=== PATIENT | female | born 1985 | race Caucasian/White ===

== ENCOUNTER 2022-05-07 15:41 | Inpatient (IN) | payer SELFPAY ==
[2022-05-07] MEDS ORDERED: Ketorolac Tromethamine 30 MG/ML VIAL ONE (17:48)
[2022-05-07 17:56] LABS: Hemoglobin 13.8 g/dL (12.0-15.5); MDiff Complete? YES; Mean Corpuscular HGB CONC 35.1 g/dL (32.0-36.0); Mean Corpuscular Hemoglobin 32.9 pg (27.0-33.0); Mean Corpuscular Volume 93.6 fl (81.6-98.3); Mean Platelet Volume 11.8 fl (7.4-10.4); Platelet Count 194 10x3/uL (150-450); RBC Distribution Width 12.6 % (11.5-14.5); White Blood Cell (WBC) Count 16.4 10x3/uL (3.5-10.5)
[2022-05-07 18:06] LABS: ALT (SGPT) 12 U/L (8-55); AST (SGOT) 13 U/L (5-34); Albumin 4.1 g/dL (3.5-5.0); Alkaline Phosphatase 99 U/L (40-110); Anion Gap 13 mmol/L (10-20); BUN (Urea Nitrogen) 17 mg/dL (7.0-18.7); Bilirubin, Total 0.5 mg/dL (0.2-1.2); Calc. Creatinine Clearance 0 mL/min (70-130); Calcium 9.2 mg/dL (7.8-10.44); Carbon Dioxide 21 mmol/L (22-29); Chloride 107 mmol/L (98-107); Estimated GFR 78; Globulin 3.5 g/dL (2.4-3.5); Glucose 106 mg/dL (70-105); Potassium 3.7 mmol/L (3.5-5.1); Protein, Total 7.6 g/dL (6.0-8.3); Sodium 137 mmol/L (136-145)
[2022-05-07 18:45] LABS: Eosinophils 2 % (0-10); Lymphocytes 11 % (21-51); Monocytes 12 % (0-10); Neutrophil 74 % (42-75); Platelet Morphology Comment Appears Adequate; Reactive Lymphocytes 1 % (0-10)
[2022-05-07] MEDS ORDERED: Acetaminophen 325 MG TAB PO PRN (18:48)
[2022-05-07] MEDS ORDERED: Cefepime 1 GM in Sodium Chloride 0.9% 100 ML IVPB SCH (21:00)
[2022-05-08] MEDS ORDERED: metroNIDAZOLE 500 MG/100 ML BAG ONE ×3 (00:28→13:56)
[2022-05-08] MEDS ORDERED: Nicotine 14 MG PATCH ONE (00:28)
[2022-05-08] MEDS ORDERED: Famotidine/PF 20 mg/2ml Vial ONE ×2 (00:28→07:58)
[2022-05-08] MEDS ORDERED: Ketorolac Tromethamine 30 MG/ML VIAL ONE ×2 (00:36→11:50)
[2022-05-08] MEDS: Famotidine/PF 20 mg/2ml Vial SLOW IVP SCH ×3 (00:46→19:53)
[2022-05-08] MEDS: Nicotine 14 MG PATCH TD SCH ×2 (00:46→19:59)
[2022-05-08] MEDS: METRONIDAZOLE IVPB SCH ×4 (00:46→22:20)
[2022-05-08] MEDS: Ketorolac Tromethamine 30 MG/ML VIAL IVP PRN (00:47)
[2022-05-08 01:38] LABS: SARS-CoV-2 NAA Rapid Test Not Detected (NotDetected)
[2022-05-08] MEDS: Doxycycline 100 MG in Sodium Chloride 0.9% 100 ML IVPB SCH ×2 (02:32→11:44)
[2022-05-08] MEDS ORDERED: cefTRIAXone\\ROCEPHIN 1 GM VIAL ONE (04:05)
[2022-05-08] MEDS: cefTRIAXone\\ROCEPHIN 1 GM in Sodium Chloride 0.9% 100 ML IVPB SCH ×2 (04:08→23:59)
[2022-05-08 04:41] LABS: #Basophils 0.1 10x3/uL (0.0-0.2); #Eosinphils 0.4 10x3/uL (0.0-0.5); #Monocytes 0.8 10x3/uL (0.0-1.1); #Neutrophils 7.1 10x3/uL (1.5-8.4); %Basophils 0.7 % (0.0-2.0); %Eosinophils 3.7 % (0.0-6.0); %Lymphocytes 23.6 % (18.0-47.0); %Monocytes 6.8 % (0.0-10.0); %Neutrophils 64.8 % (40.0-75.0); Hemoglobin 12.2 g/dL (12.0-15.5); Mean Corpuscular HGB CONC 34.4 g/dL (32.0-36.0); Mean Corpuscular Hemoglobin 32.1 pg (27.0-33.0); Mean Corpuscular Volume 93.4 fl (81.6-98.3); Mean Platelet Volume 11.9 fl (7.4-10.4); Platelet Count 173 10x3/uL (150-450); RBC Distribution Width 12.5 % (11.5-14.5)
[2022-05-08 05:04] LABS: Anion Gap 10 mmol/L (10-20); BUN (Urea Nitrogen) 19 mg/dL (7.0-18.7); Calc. Creatinine Clearance 0 mL/min (70-130); Calcium 8.2 mg/dL (7.8-10.44); Carbon Dioxide 21 mmol/L (22-29); Chloride 110 mmol/L (98-107); Estimated GFR 97; Glucose 95 mg/dL (70-105); Potassium 3.5 mmol/L (3.5-5.1); Sodium 137 mmol/L (136-145)
[2022-05-08] MEDS ORDERED: Acetaminophen 325 MG TAB ONE (10:47)
[2022-05-08] MEDS ORDERED: Ondansetron PF 4 MG/2 ML Vial ONE (10:47)
[2022-05-08] MEDS: Ondansetron PF 4 MG/2 ML Vial IVP PRN (10:53)
[2022-05-08] MEDS: Sodium Chloride 0.9% 1,000 ML IV SCH (11:43)
[2022-05-08] MEDS: Ketorolac Tromethamine 30 MG/ML VIAL IVP SCH ×2 (11:48→18:48)
[2022-05-08] MEDS ORDERED: Morphine 2 MG/ML VIAL ONE (13:55)
[2022-05-08] MEDS: Morphine 4 MG/ML VIAL SLOW IVP PRN ×2 (14:16→21:37)
[2022-05-08 17:10] VITALS: BMI 32.3
[2022-05-08] MEDS: diphenhydrAMINE 50 MG CAP PO SCH (21:33)
[2022-05-09] MEDS: Doxycycline 100 MG in Sodium Chloride 0.9% 100 ML IVPB SCH ×3 (01:07→23:56)
[2022-05-09] MEDS: Ketorolac Tromethamine 30 MG/ML VIAL IVP SCH ×5 (01:10→23:01)
[2022-05-09 05:24] LABS: Anion Gap 11 mmol/L (10-20); BUN (Urea Nitrogen) 11 mg/dL (7.0-18.7); Calc. Creatinine Clearance 126 mL/min (70-130); Calcium 7.6 mg/dL (7.8-10.44); Carbon Dioxide 19 mmol/L (22-29); Chloride 112 mmol/L (98-107); Estimated GFR 105; Glucose 85 mg/dL (70-105); Potassium 3.9 mmol/L (3.5-5.1); Sodium 138 mmol/L (136-145)
[2022-05-09 05:37] LABS: #Basophils 0.1 10x3/uL (0.0-0.2); #Eosinphils 0.3 10x3/uL (0.0-0.5); #Monocytes 0.5 10x3/uL (0.0-1.1); #Neutrophils 4.4 10x3/uL (1.5-8.4); %Basophils 0.7 % (0.0-2.0); %Eosinophils 4.4 % (0.0-6.0); %Lymphocytes 26.8 % (18.0-47.0); %Monocytes 6.8 % (0.0-10.0); Mean Corpuscular HGB CONC 34.3 g/dL (32.0-36.0); Mean Corpuscular Hemoglobin 32.4 pg (27.0-33.0); Mean Corpuscular Volume 94.4 fl (81.6-98.3); Mean Platelet Volume 12.1 fl (7.4-10.4); Platelet Count 137 10x3/uL (150-450); RBC Distribution Width 12.6 % (11.5-14.5); White Blood Cell (WBC) Count 7.2 10x3/uL (3.5-10.5)
[2022-05-09] MEDS: METRONIDAZOLE IVPB SCH ×3 (06:16→21:04)
[2022-05-09] MEDS: Famotidine/PF 20 mg/2ml Vial SLOW IVP SCH ×2 (08:35→21:04)
[2022-05-09] MEDS: Sodium Chloride 0.9% 1,000 ML IV SCH ×3 (08:35→22:15)
[2022-05-09] MEDS: Morphine 4 MG/ML VIAL SLOW IVP PRN ×2 (08:56→16:14)
[2022-05-09] MEDS: Ondansetron PF 4 MG/2 ML Vial IVP PRN ×2 (12:17→18:20)
[2022-05-09 13:48] LABS: Chlam.trachomatis by PCR,Urine Not Detected (NotDetected)
[2022-05-09] MEDS: diphenhydrAMINE 50 MG CAP PO SCH (21:03)
[2022-05-09] MEDS: Nicotine 14 MG PATCH TD SCH (21:12)
[2022-05-09] MEDS: cefTRIAXone\\ROCEPHIN 1 GM in Sodium Chloride 0.9% 100 ML IVPB SCH (22:58)
[2022-05-10] MEDS: Sodium Chloride 0.9% 1,000 ML IV SCH ×2 (04:34→19:37)
[2022-05-10] MEDS: Ketorolac Tromethamine 30 MG/ML VIAL IVP SCH ×3 (05:07→19:17)
[2022-05-10] MEDS: METRONIDAZOLE IVPB SCH ×2 (05:08→14:02)
[2022-05-10] MEDS: Morphine 4 MG/ML VIAL SLOW IVP PRN ×2 (06:04→21:46)
[2022-05-10 07:07] LABS: Anion Gap 12 mmol/L (10-20); BUN (Urea Nitrogen) 8 mg/dL (7.0-18.7); Calc. Creatinine Clearance 119 mL/min (70-130); Calcium 7.9 mg/dL (7.8-10.44); Carbon Dioxide 19 mmol/L (22-29); Chloride 114 mmol/L (98-107); Estimated GFR 99; Glucose 97 mg/dL (70-105); Potassium 4.4 mmol/L (3.5-5.1); Sodium 141 mmol/L (136-145)
[2022-05-10] MEDS: Famotidine/PF 20 mg/2ml Vial SLOW IVP SCH ×2 (08:35→21:46)
[2022-05-10 09:00] LABS: #Basophils 0.1 10x3/uL (0.0-0.2); #Eosinphils 0.5 10x3/uL (0.0-0.5); #Monocytes 0.4 10x3/uL (0.0-1.1); #Neutrophils 6.9 10x3/uL (1.5-8.4); %Basophils 0.6 % (0.0-2.0); %Eosinophils 4.7 % (0.0-6.0); %Lymphocytes 18.9 % (18.0-47.0); %Monocytes 4.3 % (0.0-10.0); %Neutrophils 71.2 % (40.0-75.0); Hemoglobin 11.9 g/dL (12.0-15.5); Mean Corpuscular HGB CONC 34.3 g/dL (32.0-36.0); Mean Corpuscular Hemoglobin 32.9 pg (27.0-33.0); Mean Corpuscular Volume 95.9 fl (81.6-98.3); Mean Platelet Volume 12.5 fl (7.4-10.4); Platelet Count 190 10x3/uL (150-450); RBC Distribution Width 12.2 % (11.5-14.5); Red Blood Cell (RBC) Count 3.62 10x6/uL (3.90-5.03); White Blood Cell (WBC) Count 9.7 10x3/uL (3.5-10.5)
[2022-05-10] MEDS: Doxycycline 100 MG in Sodium Chloride 0.9% 100 ML IVPB SCH (11:53)
[2022-05-10] MEDS ORDERED: Iopamidol 0 ML ONE (14:02)
[2022-05-10] MEDS ORDERED: B & O ONE (14:02)
[2022-05-10 14:41] LABS: Pregnancy Test - Urine (BHCG) Negative (Negative); Pregu Control Background? CLEAR/WHITE (CLR/WHITE); Pregu Control Bar Appear? YES (CONTROL BAR)
[2022-05-10] MEDS ORDERED: Fentanyl 100 MCG/2 ML VIAL ONE ×3 (15:05→16:16)
[2022-05-10] MEDS ORDERED: PROPOFOL 20 ML ONE (15:05)
[2022-05-10] MEDS ORDERED: Midazolam HCl 2 mg/2 ml Vial ONE (15:20)
[2022-05-10] MEDS ORDERED: Ondansetron PF 4 MG/2 ML Vial ONE (15:39)
[2022-05-10] MEDS ORDERED: Dexamethasone 4 mg/ml Vial ONE (15:40)
[2022-05-10] MEDS ORDERED: Iopamidol 60 ML ONE (15:57)
[2022-05-10] MEDS ORDERED: Ketorolac Tromethamine 30 MG/ML VIAL ONE (16:09)
[2022-05-10] MEDS: Nicotine 14 MG PATCH TD SCH (21:46)
[2022-05-10] MEDS: diphenhydrAMINE 50 MG CAP PO SCH (21:46)
[2022-05-10] MEDS: cefTRIAXone\\ROCEPHIN 1 GM in Sodium Chloride 0.9% 100 ML IVPB SCH (23:42)
[2022-05-11] MEDS: Ketorolac Tromethamine 30 MG/ML VIAL IVP SCH ×2 (00:08→05:58)
[2022-05-11] MEDS: Sodium Chloride 0.9% 1,000 ML IV SCH ×3 (00:26→20:29)
[2022-05-11 04:39] LABS: #Eosinphils 0.2 10x3/uL (0.0-0.5); #Monocytes 0.3 10x3/uL (0.0-1.1); #Neutrophils 10.9 10x3/uL (1.5-8.4); %Basophils 0.2 % (0.0-2.0); %Eosinophils 1.3 % (0.0-6.0); %Lymphocytes 8.2 % (18.0-47.0); %Monocytes 2.2 % (0.0-10.0); %Neutrophils 87.8 % (40.0-75.0); Hemoglobin 11.8 g/dL (12.0-15.5); Mean Corpuscular HGB CONC 34.8 g/dL (32.0-36.0); Mean Corpuscular Hemoglobin 32.7 pg (27.0-33.0); Mean Corpuscular Volume 93.9 fl (81.6-98.3); Mean Platelet Volume 12.1 fl (7.4-10.4); Platelet Count 187 10x3/uL (150-450); RBC Distribution Width 11.9 % (11.5-14.5); Red Blood Cell (RBC) Count 3.61 10x6/uL (3.90-5.03); White Blood Cell (WBC) Count 12.4 10x3/uL (3.5-10.5)
[2022-05-11 04:57] LABS: Anion Gap 11 mmol/L (10-20); BUN (Urea Nitrogen) 12 mg/dL (7.0-18.7); Calc. Creatinine Clearance 122 mL/min (70-130); Calcium 8.5 mg/dL (7.8-10.44); Carbon Dioxide 21 mmol/L (22-29); Chloride 109 mmol/L (98-107); Estimated GFR 102; Glucose 218 mg/dL (70-105); Potassium 4.2 mmol/L (3.5-5.1); Sodium 137 mmol/L (136-145)
[2022-05-11] MEDS: Sulfameth/Trimethoprim DS 800-160mg TAB PO SCH ×2 (09:42→20:16)
[2022-05-11] MEDS: Famotidine/PF 20 mg/2ml Vial SLOW IVP SCH ×2 (09:43→20:16)
[2022-05-11] MEDS: Morphine 4 MG/ML VIAL SLOW IVP PRN ×3 (09:56→23:04)
[2022-05-11] MEDS ORDERED: Sodium Chloride 0.9% 1,000 ML IV SCH (19:24)
[2022-05-11] MEDS: diphenhydrAMINE 50 MG CAP PO SCH (20:15)
[2022-05-11] MEDS: Doxycycline 100 MG CAP PO SCH (20:16)
[2022-05-11] MEDS: Ketorolac Tromethamine 30 MG/ML VIAL IVP PRN (20:16)
[2022-05-11] MEDS: Nicotine 14 MG PATCH TD SCH (20:17)
[2022-05-11] MEDS: metroNIDAZOLE 500 MG TAB PO SCH ×2 (20:31→20:52)
[2022-05-11] MEDS ORDERED: metroNIDAZOLE 500 MG TAB PO SCH (21:00)
[2022-05-12 05:30] LABS: #Basophils 0.1 10x3/uL (0.0-0.2); #Eosinphils 0.4 10x3/uL (0.0-0.5); #Monocytes 0.9 10x3/uL (0.0-1.1); #Neutrophils 7.7 10x3/uL (1.5-8.4); %Basophils 0.6 % (0.0-2.0); %Eosinophils 3.2 % (0.0-6.0); %Lymphocytes 24.5 % (18.0-47.0); %Monocytes 7.7 % (0.0-10.0); %Neutrophils 63.5 % (40.0-75.0); Hemoglobin 11.7 g/dL (12.0-15.5); Mean Corpuscular Hemoglobin 32.7 pg (27.0-33.0); Mean Corpuscular Volume 93.3 fl (81.6-98.3); Mean Platelet Volume 11.8 fl (7.4-10.4); Platelet Count 184 10x3/uL (150-450); RBC Distribution Width 12.4 % (11.5-14.5); Red Blood Cell (RBC) Count 3.58 10x6/uL (3.90-5.03); White Blood Cell (WBC) Count 12.1 10x3/uL (3.5-10.5)
[2022-05-12 05:33] LABS: Anion Gap 12 mmol/L (10-20); BUN (Urea Nitrogen) 11 mg/dL (7.0-18.7); Bilirubin, Total 0.3 mg/dL (0.2-1.2); Calc. Creatinine Clearance 114 mL/min (70-130); Calcium 8.5 mg/dL (7.8-10.44); Carbon Dioxide 21 mmol/L (22-29); Chloride 111 mmol/L (98-107); Estimated GFR 93; Glucose 87 mg/dL (70-105); Potassium 3.9 mmol/L (3.5-5.1); Sodium 140 mmol/L (136-145)
[2022-05-12 05:34] LABS: ALT (SGPT) 22 U/L (8-55); AST (SGOT) 21 U/L (5-34); Albumin 3.1 g/dL (3.5-5.0); Alkaline Phosphatase 99 U/L (40-110); Globulin 2.9 g/dL (2.4-3.5); Magnesium 1.7 mg/dL (1.6-2.6)
[2022-05-12] MEDS: Morphine 4 MG/ML VIAL SLOW IVP PRN ×2 (06:34→10:57)
[2022-05-12] MEDS: Doxycycline 100 MG CAP PO SCH (08:55)
[2022-05-12] MEDS: metroNIDAZOLE 500 MG TAB PO SCH (08:55)
[2022-05-12] MEDS: Sulfameth/Trimethoprim DS 800-160mg TAB PO SCH (08:56)
[2022-05-12] MEDS: Famotidine/PF 20 mg/2ml Vial SLOW IVP SCH (08:56)
[2022-05-12] MEDS: Ondansetron PF 4 MG/2 ML Vial IVP PRN (09:45)
[2022-05-12] MEDS ORDERED: HYDROcodone/Acetaminophen 5/325 mg Tablet PO PRN ×2 (11:23)
[2022-05-12] MEDS ORDERED: Phenazopyridine HCl 95 MG TAB PO PRN (11:24)
[2022-05-12 19:00] VITALS: BP 136/65; TEMP 98.2
== END 2022-05-12 18:35 | disposition home or self-care (01) | DRG 854 ==
LOC: CSHERS 15:41 → CSHERHOLD 19:57 → CSHTELE 05-08 15:00
PROVIDERS: ADMIT Internal Medicine; ATTEND Family Medicine
PROC: 0T778DZ Dilation of Left Ureter with Intraluminal Device, Via Natural or Artificial Opening Endoscopic (ICD-10-PCS; principal; 2022-05-10)
PROC: 0T7D8ZZ Dilation of Urethra, Via Natural or Artificial Opening Endoscopic (ICD-10-PCS; 2022-05-10)
PROC: BT141ZZ Fluoroscopy of Kidneys, Ureters and Bladder using Low Osmolar Contrast (ICD-10-PCS; 2022-05-10)
PROC: 0T9B70Z Drainage of Bladder with Drainage Device, Via Natural or Artificial Opening (ICD-10-PCS; 2022-05-10)
DX: A41.51 Sepsis due to Escherichia coli [E. coli] (principal); N11.1 Chronic obstructive pyelonephritis; F41.9 Anxiety disorder, unspecified; F17.210 Nicotine dependence, cigarettes, uncomplicated; N70.92 Oophoritis, unspecified; G43.909 Migraine, unspecified, not intractable, without status migrainosus; N35.92 Unspecified urethral stricture, female; Z20.822 Contact with and (suspected) exposure to COVID-19; Z88.0 Allergy status to penicillin; Z79.899 Other long term (current) drug therapy; Z90.49 Acquired absence of other specified parts of digestive tract; Z86.73 Personal history of transient ischemic attack (TIA), and cerebral infarction without residual deficits
CPT/HCPCS: 36416; 51600; 51701; 74430; 76856; 80048; 80053; 81025; 83735; 85025; 87491; 87591; 93976; 94760; 96361; 96374; C2625; J0696; J1100; J1885; J2250; J2270; J2405; J2704; J3010; J3490; J7050; Q9967; S0028; U0002

== ENCOUNTER 2022-05-13 10:21 | Inpatient (IN) | payer SELFPAY ==
[2022-05-13] MEDS ORDERED: hydrALAZINE 20 MG/ML VIAL SLOW IVP PRN (12:05)
[2022-05-13] MEDS ORDERED: Acetaminophen 325 MG TAB PO PRN (12:14)
[2022-05-13] MEDS ORDERED: Electrolyte Replacement Protocol 1 EACH FS SCH (12:15)
[2022-05-13] MEDS ORDERED: Promethazine HCl 12.5 MG in Sodium Chloride 0.9% 50 ML IVPB PRN (12:17)
[2022-05-13] MEDS ORDERED: Morphine 2 MG/ML VIAL SLOW IVP PRN (12:21)
[2022-05-13] MEDS ORDERED: Magnesium 2 GM/50 ML(in water) 2 GM in Premix Bag 1 BAG IVPB SCH (13:00)
[2022-05-13 14:27] VITALS: BMI 32.1
[2022-05-13] MEDS ORDERED: Vancomycin HCl 1.5 GM in Sodium Chloride 0.9% 250 ML 300 ML IVPB SCH (14:45)
[2022-05-13] MEDS: Nicotine 14 MG PATCH TD PRN (15:07)
[2022-05-13] MEDS: Sodium Chloride 0.9% 1,000 ML IV SCH ×2 (15:07→19:51)
[2022-05-13] MEDS ORDERED: VANCOMYCIN 1.5 GM in Sodium Chloride 0.9% 250 ML 300 ML IVPB SCH (15:30)
[2022-05-13] MEDS: Ondansetron PF 4 MG/2 ML Vial IVP PRN (16:44)
[2022-05-13] MEDS: Morphine 4 MG/ML VIAL SLOW IVP PRN (19:51)
[2022-05-13] MEDS ORDERED: Vancomycin 1 GM in Premix Bag 1 BAG IVPB SCH (21:00)
[2022-05-14] MEDS: Morphine 4 MG/ML VIAL SLOW IVP PRN ×5 (00:44→20:42)
[2022-05-14 02:05] LABS: SARS-CoV-2 NAA Rapid Test Not Detected (NotDetected)
[2022-05-14 05:07] LABS: #Basophils 0.1 10x3/uL (0.0-0.2); #Eosinphils 0.5 10x3/uL (0.0-0.5); #Monocytes 0.9 10x3/uL (0.0-1.1); #Neutrophils 5.6 10x3/uL (1.5-8.4); %Basophils 0.6 % (0.0-2.0); %Eosinophils 4.5 % (0.0-6.0); %Lymphocytes 30.3 % (18.0-47.0); %Monocytes 9.1 % (0.0-10.0); %Neutrophils 55.1 % (40.0-75.0); Hemoglobin 12.2 g/dL (12.0-15.5); Mean Corpuscular HGB CONC 34.5 g/dL (32.0-36.0); Mean Corpuscular Hemoglobin 32.5 pg (27.0-33.0); Mean Corpuscular Volume 94.4 fl (81.6-98.3); Mean Platelet Volume 11.9 fl (7.4-10.4); Platelet Count 210 10x3/uL (150-450); RBC Distribution Width 12.4 % (11.5-14.5); Red Blood Cell (RBC) Count 3.75 10x6/uL (3.90-5.03); White Blood Cell (WBC) Count 10.1 10x3/uL (3.5-10.5)
[2022-05-14 05:32] LABS: ALT (SGPT) 57 U/L (8-55); AST (SGOT) 23 U/L (5-34); Albumin 3.1 g/dL (3.5-5.0); Alkaline Phosphatase 137 U/L (40-110); Anion Gap 13 mmol/L (10-20); BUN (Urea Nitrogen) 14 mg/dL (7.0-18.7); Bilirubin, Total 0.3 mg/dL (0.2-1.2); Calc. Creatinine Clearance 123 mL/min (70-130); Calcium 8.3 mg/dL (7.8-10.44); Carbon Dioxide 23 mmol/L (22-29); Chloride 106 mmol/L (98-107); Estimated GFR 103; Globulin 2.9 g/dL (2.4-3.5); Glucose 112 mg/dL (70-105); Potassium 3.9 mmol/L (3.5-5.1); Sodium 138 mmol/L (136-145)
[2022-05-14] MEDS: Sodium Chloride 0.9% 1,000 ML IV SCH ×2 (08:31→20:01)
[2022-05-14 08:56] LABS: Bilirubin Neg (Negative); Blood, Urine 250 (Negative); Glucose, Urine (Dipstick) Normal (Negative); Ketone, Urine Negative (Negative); Leukocyte 25 (Negative); Nitrite Negative (Negative); Protein, Urine (Dipstick) 30 mg/dl (Neg-Trace); Urobilinogen Normal mg/dL (Less than 2)
[2022-05-14] MEDS ORDERED: VANCOMYCIN 1.25 GM in Sodium Chloride 0.9% 250 ML 250 ML IVPB SCH (09:00)
[2022-05-14 09:03] LABS: Clarity Slightly Cloudy (Clear)
[2022-05-14 09:10] LABS: RBC/HPF 21-50 HPF (0-3)
[2022-05-14 09:11] LABS: Bacteria/HPF Rare-Few HPF (None Seen)
[2022-05-14 09:14] LABS: Squamous Epithelial 0-3 HPF (0-3)
[2022-05-14 09:16] LABS: Urine Culture Reflex Yes Yes
[2022-05-14 12:15] LABS: HBSAg Index 0.24 S/CO (0-0.99); Hep B Surf Ag NonReactive S/CO (NonReactive)
[2022-05-14 13:22] LABS: HBCM Index 0.06 S/CO (0-0.79); Hep A IgM AB Non-Reactive (NonReactive); Hep A IgM S/CO 0.19 S/CO (0-0.79); Hep C IgG Ab Non-Reactive (NonReactive); Hep C Index 0.09 S/CO (0-0.79); Hepatitis B Core IgM Abs Non-Reactive (NonReactive)
[2022-05-14] MEDS: Nicotine 14 MG PATCH TD PRN (14:20)
[2022-05-14 14:24] LABS: Hep C IgG Ab Non-Reactive (NonReactive); Hep C Index 0.11 S/CO (0-0.79)
[2022-05-14] MEDS: cefTRIAXone\\ROCEPHIN 2 GM in Sodium Chloride 0.9% 100 ML IVPB SCH (16:59)
[2022-05-14] MEDS: Doxycycline 100 MG in Sodium Chloride 0.9% 100 ML IVPB SCH (17:04)
[2022-05-14] MEDS: metroNIDAZOLE 500 MG in Premix Bag 1 BAG IVPB SCH (17:07)
[2022-05-14] MEDS: Ondansetron ODT 4 MG TAB PO PRN (21:59)
[2022-05-14 22:25] LABS: Campy jejuni + coli by PCR Negative (Negative); STEC Shiga Toxin 1+2 Negative (Negative); Salmonella spp. by PCR Negative (Negative); Shigella spp + EIEC by PCR Negative (Negative)
[2022-05-15] MEDS: Morphine 4 MG/ML VIAL SLOW IVP PRN ×5 (02:40→21:00)
[2022-05-15] MEDS: Doxycycline 100 MG in Sodium Chloride 0.9% 100 ML IVPB SCH ×2 (04:18→16:46)
[2022-05-15 04:42] LABS: #Basophils 0.1 10x3/uL (0.0-0.2); #Eosinphils 0.6 10x3/uL (0.0-0.5); #Monocytes 0.8 10x3/uL (0.0-1.1); #Neutrophils 6.1 10x3/uL (1.5-8.4); %Basophils 0.8 % (0.0-2.0); %Eosinophils 5.8 % (0.0-6.0); %Lymphocytes 26.1 % (18.0-47.0); %Monocytes 7.8 % (0.0-10.0); %Neutrophils 59.2 % (40.0-75.0); Hemoglobin 12.6 g/dL (12.0-15.5); Mean Corpuscular HGB CONC 34.5 g/dL (32.0-36.0); Mean Corpuscular Hemoglobin 32.6 pg (27.0-33.0); Mean Corpuscular Volume 94.6 fl (81.6-98.3); Mean Platelet Volume 11.4 fl (7.4-10.4); Platelet Count 231 10x3/uL (150-450); RBC Distribution Width 12.4 % (11.5-14.5); Red Blood Cell (RBC) Count 3.86 10x6/uL (3.90-5.03); White Blood Cell (WBC) Count 10.3 10x3/uL (3.5-10.5)
[2022-05-15 04:54] LABS: ALT (SGPT) 72 U/L (8-55); AST (SGOT) 48 U/L (5-34); Albumin 3.4 g/dL (3.5-5.0); Alkaline Phosphatase 158 U/L (40-110); Anion Gap 13 mmol/L (10-20); BUN (Urea Nitrogen) 11 mg/dL (7.0-18.7); Bilirubin, Total 0.3 mg/dL (0.2-1.2); Calc. Creatinine Clearance 119 mL/min (70-130); Calcium 9.1 mg/dL (7.8-10.44); Carbon Dioxide 25 mmol/L (22-29); Chloride 104 mmol/L (98-107); Estimated GFR 99; Globulin 3.3 g/dL (2.4-3.5); Glucose 108 mg/dL (70-105); Potassium 3.9 mmol/L (3.5-5.1); Protein, Total 6.7 g/dL (6.0-8.3); Sodium 138 mmol/L (136-145)
[2022-05-15 05:01] LABS: ALT (SGPT) 73 U/L (8-55); AST (SGOT) 50 U/L (5-34); Albumin 3.5 g/dL (3.5-5.0); Alkaline Phosphatase 160 U/L (40-110); Bilirubin, Direct 0.1 mg/dL (0.1-0.3); Bilirubin, Total 0.3 mg/dL (0.2-1.2); Protein, Total 6.7 g/dL (6.0-8.3)
[2022-05-15] MEDS: metroNIDAZOLE 500 MG in Premix Bag 1 BAG IVPB SCH ×3 (07:03→22:00)
[2022-05-15 15:50] LABS: Pregnancy Test - Urine (BHCG) Negative (Negative)
[2022-05-15 15:51] LABS: Pregu Control Background? CLEAR/WHITE (CLR/WHITE); Pregu Control Bar Appear? YES (CONTROL BAR)
[2022-05-15] MEDS: cefTRIAXone\\ROCEPHIN 2 GM in Sodium Chloride 0.9% 100 ML IVPB SCH (16:46)
[2022-05-16] MEDS: Doxycycline 100 MG in Sodium Chloride 0.9% 100 ML IVPB SCH (03:43)
[2022-05-16] MEDS: Morphine 4 MG/ML VIAL SLOW IVP PRN ×2 (03:53→09:20)
[2022-05-16] MEDS: Ondansetron PF 4 MG/2 ML Vial IVP PRN (04:56)
[2022-05-16] MEDS: metroNIDAZOLE 500 MG in Premix Bag 1 BAG IVPB SCH (09:20)
[2022-05-16] MEDS: HYDROcodone/Acetaminophen 5/325 mg Tablet PO PRN ×2 (15:04→21:02)
[2022-05-16] MEDS: Ondansetron ODT 4 MG TAB PO PRN ×2 (15:04→21:04)
[2022-05-16] MEDS: Ibuprofen 400 MG TAB PO SCH ×2 (17:27→22:49)
[2022-05-16] MEDS: metroNIDAZOLE 500 MG TAB PO SCH ×2 (17:27→21:04)
[2022-05-16] MEDS ORDERED: Cefdinir 300 MG CAP PO SCH (21:00)
[2022-05-16] MEDS ORDERED: Doxycycline 100 MG CAP PO SCH (21:00)
[2022-05-17] MEDS: Ibuprofen 400 MG TAB PO SCH ×5 (00:10→23:26)
[2022-05-17] MEDS: HYDROcodone/Acetaminophen 5/325 mg Tablet PO PRN ×4 (00:11→22:14)
[2022-05-17] MEDS: Ondansetron ODT 4 MG TAB PO PRN ×4 (03:34→20:50)
[2022-05-17] MEDS ORDERED: Cefdinir 300 MG CAP PO SCH (08:00)
[2022-05-17 08:34] LABS: #Basophils 0.1 10x3/uL (0.0-0.2); #Eosinphils 0.8 10x3/uL (0.0-0.5); #Neutrophils 5.5 10x3/uL (1.5-8.4); %Basophils 0.9 % (0.0-2.0); %Eosinophils 7.5 % (0.0-6.0); %Lymphocytes 30.6 % (18.0-47.0); %Monocytes 9.2 % (0.0-10.0); %Neutrophils 51.5 % (40.0-75.0); Hemoglobin 13.5 g/dL (12.0-15.5); Mean Corpuscular Hemoglobin 32.8 pg (27.0-33.0); Mean Corpuscular Volume 93.7 fl (81.6-98.3); Mean Platelet Volume 10.8 fl (7.4-10.4); Platelet Count 276 10x3/uL (150-450); RBC Distribution Width 12.6 % (11.5-14.5); Red Blood Cell (RBC) Count 4.12 10x6/uL (3.90-5.03); White Blood Cell (WBC) Count 10.7 10x3/uL (3.5-10.5)
[2022-05-17 08:49] LABS: Anion Gap 12 mmol/L (10-20); BUN (Urea Nitrogen) 21 mg/dL (7.0-18.7); Calc. Creatinine Clearance 109 mL/min (70-130); Carbon Dioxide 21 mmol/L (22-29); Chloride 106 mmol/L (98-107); Potassium 4.1 mmol/L (3.5-5.1); Sodium 135 mmol/L (136-145)
[2022-05-17 08:50] LABS: ALT (SGPT) 68 U/L (8-55); AST (SGOT) 32 U/L (5-34); Albumin 3.7 g/dL (3.5-5.0); Alkaline Phosphatase 139 U/L (40-110); Bilirubin, Total 0.3 mg/dL (0.2-1.2); Calcium 9.2 mg/dL (7.8-10.44); Estimated GFR 89; Globulin 3.4 g/dL (2.4-3.5); Glucose 100 mg/dL (70-105); Protein, Total 7.1 g/dL (6.0-8.3)
[2022-05-17] MEDS ORDERED: Magnesium 2 GM/50 ML(in water) 2 GM in Premix Bag 1 BAG IVPB SCH (10:00)
[2022-05-17] MEDS ORDERED: Doxycycline 100 MG CAP PO SCH (10:00)
[2022-05-17] MEDS: metroNIDAZOLE 500 MG TAB PO SCH (11:00)
[2022-05-17] MEDS ORDERED: Metoclopramide HCl 10 MG/2 ML VIAL IVP SCH (14:30)
[2022-05-17] MEDS ORDERED: diphenhydrAMINE 25 MG in Sodium Chloride 0.9% 50 ML IVPB SCH (14:30)
[2022-05-17] MEDS ORDERED: diphenhydrAMINE 50 MG/ML VIAL IVP SCH (14:30)
[2022-05-17] MEDS: cefTRIAXone\\ROCEPHIN 2 GM in Sodium Chloride 0.9% 100 ML IVPB SCH ×2 (15:42→18:33)
[2022-05-17] MEDS: metroNIDAZOLE 500 MG in Premix Bag 1 BAG IVPB SCH ×2 (15:44→18:35)
[2022-05-17] MEDS: Clindamycin 150 MG CAP PO SCH (18:45)
[2022-05-17 19:54] LABS: Bilirubin Neg (Negative); Blood, Urine 250 (Negative); Glucose, Urine (Dipstick) Normal (Negative); Ketone, Urine Negative (Negative); Leukocyte 100 (Negative); Nitrite Negative (Negative); Protein, Urine (Dipstick) 30 mg/dl (Neg-Trace); Specific Gravity, Urine 1.005 (1.005-1.030); Urobilinogen Normal mg/dL (Less than 2)
[2022-05-17 19:56] LABS: Urine Culture Reflex No No
[2022-05-17 19:59] LABS: Bacteria/HPF 1+ HPF (None Seen); RBC/HPF 21-50 HPF (0-3)
[2022-05-17] MEDS ORDERED: Doxycycline 100 MG in Sodium Chloride 0.9% 100 ML IVPB SCH (21:00)
[2022-05-17] MEDS: Doxycycline 100 MG CAP PO SCH (23:26)
[2022-05-18] MEDS: Clindamycin 150 MG CAP PO SCH (01:23)
[2022-05-18 05:42] LABS: #Basophils 0.1 10x3/uL (0.0-0.2); #Eosinphils 0.6 10x3/uL (0.0-0.5); #Neutrophils 6.8 10x3/uL (1.5-8.4); %Basophils 0.6 % (0.0-2.0); %Lymphocytes 24.8 % (18.0-47.0); %Monocytes 8.8 % (0.0-10.0); %Neutrophils 60.4 % (40.0-75.0); Hemoglobin 13.9 g/dL (12.0-15.5); Mean Corpuscular HGB CONC 34.8 g/dL (32.0-36.0); Mean Corpuscular Hemoglobin 32.7 pg (27.0-33.0); Mean Corpuscular Volume 93.9 fl (81.6-98.3); Mean Platelet Volume 11.3 fl (7.4-10.4); Platelet Count 254 10x3/uL (150-450); RBC Distribution Width 12.7 % (11.5-14.5); Red Blood Cell (RBC) Count 4.25 10x6/uL (3.90-5.03); White Blood Cell (WBC) Count 11.3 10x3/uL (3.5-10.5)
[2022-05-18] MEDS: Ibuprofen 400 MG TAB PO SCH (05:50)
[2022-05-18 06:03] LABS: ALT (SGPT) 64 U/L (8-55); AST (SGOT) 28 U/L (5-34); Albumin 3.8 g/dL (3.5-5.0); Alkaline Phosphatase 147 U/L (40-110); Anion Gap 12 mmol/L (10-20); BUN (Urea Nitrogen) 17 mg/dL (7.0-18.7); Bilirubin, Total 0.5 mg/dL (0.2-1.2); Calc. Creatinine Clearance 110 mL/min (70-130); Calcium 9.3 mg/dL (7.8-10.44); Carbon Dioxide 22 mmol/L (22-29); Chloride 106 mmol/L (98-107); Estimated GFR 90; Globulin 3.5 g/dL (2.4-3.5); Glucose 111 mg/dL (70-105); Magnesium 2.3 mg/dL (1.6-2.6); Phosphorus 3.6 mg/dL (2.3-4.7); Potassium 4.1 mmol/L (3.5-5.1); Protein, Total 7.3 g/dL (6.0-8.3); Sodium 136 mmol/L (136-145)
[2022-05-18 06:24] LABS: CRP (Inflammatory) Less than 0.50 mg/dL (= or < 0.5)
[2022-05-18] MEDS ORDERED: Clindamycin 150 MG CAP PO SCH (08:00)
[2022-05-18] MEDS: Doxycycline 100 MG CAP PO SCH (10:04)
[2022-05-18 10:15] VITALS: BP 127/77; TEMP 98.4
[2022-05-18] MEDS ORDERED: Cefdinir 300 MG CAP PO SCH (21:00)
== END 2022-05-18 10:09 | disposition home or self-care (01) | DRG 757 ==
LOC: INTOOBSV 10:21 → CSHTELE 10:21 → OBSVTOIN 05-14 14:02
PROVIDERS: ADMIT Family Medicine; ATTEND Hospitalist
DX: N70.11 Chronic salpingitis (principal); K83.1 Obstruction of bile duct; N13.6 Pyonephrosis; F41.9 Anxiety disorder, unspecified; F17.210 Nicotine dependence, cigarettes, uncomplicated; K52.9 Noninfective gastroenteritis and colitis, unspecified; Z20.822 Contact with and (suspected) exposure to COVID-19; Z96.0 Presence of urogenital implants; Z88.0 Allergy status to penicillin; Z79.899 Other long term (current) drug therapy; Z90.49 Acquired absence of other specified parts of digestive tract
CPT/HCPCS: 36415; 74181; 76856; 80053; 80074; 81001; 81025; 83630; 83735; 84100; 85025; 86140; 86803; 87040; 87086; 87324; 87449; 87505; 94760; 96365; 96375; 96376; G0378; J0360; J0696; J1200; J2270; J2405; J2765; J3475; J3490; J7050; Q0162; U0002

== ENCOUNTER 2022-06-09 17:45 | Emergency (ER) | payer SELFPAY ==
[2022-06-09 18:42] LABS: Bilirubin Neg (Negative); Blood, Urine 250 (Negative); Clarity Sl. Cloudy (Clear); Glucose, Urine (Dipstick) Normal (Negative); Ketone, Urine 5 mg/dL (Negative); Leukocyte 100 (Negative); Nitrite Negative (Negative); Protein, Urine (Dipstick) 100 mg/dl (Neg-Trace); Urobilinogen Normal mg/dL (Less than 2)
[2022-06-09] MEDS ORDERED: Ondansetron PF 4 MG/2 ML Vial ONE (18:44)
[2022-06-09] MEDS ORDERED: Morphine 4 MG/ML VIAL ONE (18:44)
[2022-06-09 18:45] LABS: Pregnancy Test - Urine (BHCG) Negative (Negative); Pregu Control Bar Appear? YES (CONTROL BAR)
[2022-06-09 18:46] LABS: Pregu Control Background? CLEAR/WHITE (CLR/WHITE)
[2022-06-09 18:58] LABS: #Basophils 0.1 10x3/uL (0.0-0.2); #Eosinphils 0.4 10x3/uL (0.0-0.5); #Monocytes 0.6 10x3/uL (0.0-1.1); #Neutrophils 5.4 10x3/uL (1.5-8.4); %Basophils 0.7 % (0.0-2.0); %Eosinophils 3.9 % (0.0-6.0); %Lymphocytes 28.5 % (18.0-47.0); %Monocytes 6.3 % (0.0-10.0); %Neutrophils 60.4 % (40.0-75.0); Hemoglobin 13.7 g/dL (12.0-15.5); Mean Corpuscular HGB CONC 36.1 g/dL (32.0-36.0); Mean Corpuscular Hemoglobin 33.3 pg (27.0-33.0); Mean Corpuscular Volume 92.5 fl (81.6-98.3); Mean Platelet Volume 12.2 fl (7.4-10.4); Platelet Count 171 10x3/uL (150-450); RBC Distribution Width 11.9 % (11.5-14.5); Red Blood Cell (RBC) Count 4.11 10x6/uL (3.90-5.03)
[2022-06-09 19:00] LABS: Bacteria/HPF 2+ HPF (None Seen); Mucous/LPF 2+ LPF (<2+)
[2022-06-09 19:20] LABS: ALT (SGPT) 7 U/L (8-55); AST (SGOT) 15 U/L (5-34); Alkaline Phosphatase 92 U/L (40-110); Anion Gap 14 mmol/L (10-20); BUN (Urea Nitrogen) 13 mg/dL (7.0-18.7); Bilirubin, Total 0.6 mg/dL (0.2-1.2); Calc. Creatinine Clearance 0 mL/min (70-130); Carbon Dioxide 20 mmol/L (22-29); Chloride 108 mmol/L (98-107); Estimated GFR 81; Globulin 3.1 g/dL (2.4-3.5); Glucose 147 mg/dL (70-105); Lipase 28 U/L (8-78); Protein, Total 7.1 g/dL (6.0-8.3); Sodium 138 mmol/L (136-145)
[2022-06-09 20:14] LABS: INR-International Normal Ratio 0.9; PTT 24.2 sec (22.0-33.0); Prothrombin Time 10.2 sec (9.5-12.1)
== END 2022-06-09 20:30 | disposition home or self-care (01) ==
LOC: CSHERS 17:45
DX: N39.0 Urinary tract infection, site not specified (principal); N70.11 Chronic salpingitis; F17.210 Nicotine dependence, cigarettes, uncomplicated; Z86.73 Personal history of transient ischemic attack (TIA), and cerebral infarction without residual deficits
CPT/HCPCS: 76856; 80053; 81003; 81015; 81025; 83690; 85025; 85610; 85730; 86850; 86870; 86900; 86901; 96361; 96374; 96375; J2270; J2405

== ENCOUNTER 2022-07-05 10:38 | Outpatient (CLI) | payer OTHER | END 2022-07-05 10:39 | disposition home or self-care (01) | LOC: CSHLAB 10:38 | PROVIDERS: ATTEND Obstetrics & Gynecology | DX: Z01.818 Encounter for other preprocedural examination (principal); N70.11 Chronic salpingitis | CPT/HCPCS: 80048; 84703; 85027; 86850; 86870; 86900; 86901; 93005; 93010 ==

== ENCOUNTER 2022-07-09 05:33 | Day surgery (SDC) | payer OTHER ==
[2022-07-05 12:50] LABS: Hemoglobin 14.1 g/dL (12.0-15.5); Mean Corpuscular HGB CONC 35.1 g/dL (32.0-36.0); Mean Corpuscular Hemoglobin 32.4 pg (27.0-33.0); Mean Corpuscular Volume 92.4 fl (81.6-98.3); Mean Platelet Volume 12.5 fl (7.4-10.4); Platelet Count 181 10x3/uL (150-450); RBC Distribution Width 12.4 % (11.5-14.5); Red Blood Cell (RBC) Count 4.35 10x6/uL (3.90-5.03); White Blood Cell (WBC) Count 9.5 10x3/uL (3.5-10.5)
[2022-07-05 13:04] LABS: BHCG - Serum Negative (NEGATIVE); Pregs Control Background? CLEAR/WHITE (CLR/WHITE); Pregs Control Bar Appear? YES (CONTROL BAR)
[2022-07-05 13:11] LABS: Anion Gap 15 mmol/L (10-20); BUN (Urea Nitrogen) 13 mg/dL (7.0-18.7); Calc. Creatinine Clearance 0 mL/min (70-130); Calcium 9.4 mg/dL (7.8-10.44); Carbon Dioxide 20 mmol/L (22-29); Chloride 106 mmol/L (98-107); Estimated GFR 97; Glucose 83 mg/dL (70-105); Potassium 4.1 mmol/L (3.5-5.1); Sodium 137 mmol/L (136-145)
[2022-07-08 10:26] VITALS: BMI 31.1
[2022-07-09] MEDS ORDERED: Famotidine/PF 20 mg/2ml Vial ONE (06:22)
[2022-07-09] MEDS ORDERED: Gabapentin 300 MG CAP ONE (06:22)
[2022-07-09] MEDS ORDERED: CeleCOXIB 100 MG CAP ONE ×2 (06:22→06:32)
[2022-07-09] MEDS ORDERED: Bupivacaine PF 0.5% 30 ML VIAL ONE (06:49)
[2022-07-09] MEDS ORDERED: EPINEPHrine 1 MG/ML AMP ONE (06:49)
[2022-07-09] MEDS ORDERED: SUGAMMADEX SODIUM 200 MG/2 ML VIAL ONE (07:13)
[2022-07-09] MEDS ORDERED: HYDROmorphone 0.5 MG/0.5 ML SYRINGE ONE (07:13)
[2022-07-09] MEDS ORDERED: Propofol 1,000 MG/100 ML VIAL IV ONE (07:14)
[2022-07-09] MEDS ORDERED: Midazolam HCl 2 mg/2 ml Vial ONE ×2 (07:14→07:16)
[2022-07-09] MEDS ORDERED: Esmolol 100 MG/10 ML VIAL ONE (07:17)
[2022-07-09] MEDS ORDERED: Lidocaine 1% PF 5 ML VIAL ONE (07:17)
[2022-07-09] MEDS ORDERED: Rocuronium Bromide 10 MG/ML (10ML VIAL) ONE (07:17)
[2022-07-09] MEDS ORDERED: Dexamethasone 4 mg/ml Vial ONE (07:17)
[2022-07-09] MEDS ORDERED: Ondansetron PF 4 MG/2 ML Vial ONE (07:17)
[2022-07-09] MEDS ORDERED: CEFAZOLIN 2 GM VIAL ONE (07:20)
[2022-07-09] MEDS ORDERED: Ketorolac Tromethamine 30 MG/ML VIAL ONE (07:46)
[2022-07-09] MEDS ORDERED: Fentanyl 100 MCG/2 ML VIAL ONE (09:01)
== END 2022-07-09 10:15 | disposition home or self-care (01) ==
LOC: CSHSDC 05:33
PROVIDERS: ATTEND Obstetrics & Gynecology
PROC: 0UB64ZZ Excision of Left Fallopian Tube, Percutaneous Endoscopic Approach (ICD-10-PCS; principal; 2022-07-09)
DX: N70.11 Chronic salpingitis (principal); N73.9 Female pelvic inflammatory disease, unspecified; K66.0 Peritoneal adhesions (postprocedural) (postinfection); N83.202 Unspecified ovarian cyst, left side; Z79.899 Other long term (current) drug therapy; Z88.0 Allergy status to penicillin; F17.210 Nicotine dependence, cigarettes, uncomplicated
CPT/HCPCS: 80048; 84703; 85027; 86850; 86870; 86900; 86901; 86922; 88305; J0171; J1100; J1170; J1885; J2250; J2405; J2704; J3010; S0020; S0028

== ENCOUNTER 2022-10-15 09:32 | Outpatient (CLI) | payer OTHER | END 2022-10-15 09:33 | disposition home or self-care (01) | LOC: CSHULT 09:32 | PROVIDERS: ATTEND Family Medicine | DX: S25.02 Major laceration of thoracic aorta (principal) | CPT/HCPCS: 76775 ==